=== PATIENT | female | born 1960 | race Caucasian/White ===

== ENCOUNTER 2019-01-11 10:28 | Day surgery (SDC) | payer OTHER ==
[~2019-01-11 10:28] MED LIST: LACTATED RINGERS 1,000 ML IV.SOLN IV ONE; LIDOCAINE HCL 2% PF 100MG/5ML VIAL IJ ONE; PROPOFOL 200 MG/20 ML VIAL IV ONE
--- NOTE | 2019-01-26 13:55 | GI Report ---
PROCEDURE PERFORMED: Colonoscopy with polypectomy. SURGEON: Ashwini Barksdale M.D., [place] INDICATION FOR PROCEDURE: The patient is a 58-year-old woman who had a polyp removed back in 2011. She denies any change in bowel habits or bleeding. PROCEDURE MEDICATION: Propofol, as per Anesthesia. DESCRIPTION OF PROCEDURE: An Olympus video colonoscope was advanced in the rectum. In the descending colon at 60 cm the patient has a 3 mm flat polyp removed with the cold snare at the end of the procedure. The colonoscope was advanced all the way to the cecum. The appendiceal orifice and terminal ileum were normal. On slow withdrawal through the cecum, ascending colon, transverse colon no obvious intraluminal lesions were noted. In the descending colon on withdrawal at 60 cm she had the polyp described above that was removed with a cold snare. The sigmoid colon had no obvious intraluminal lesions noted. Retroflexion in the rectum was normal. The patient tolerated the procedure well. FINDINGS: One small descending colon polyp was removed. RECOMMENDATIONS: 1. High fiber diet. 2. Consider relooking at her colon in 5-10 years pending the pathology of the polyp. If it is hyperplastic it would be 10 years, if it is adenomatous, it would be 5 years. ASHWINI BARKSDALE M.D., [email or web address]. LISA/byron R: 01/25/19 Job#: [id number] Cc: ANU Rucker [address] [id number] Sent via ] POPEYE
== END 2019-01-11 12:33 | disposition home or self-care (01) ==
LOC: OPSURG 10:28
PROVIDERS: ATTEND Internal Medicine Gastroenterology
DX: D12.4 Benign neoplasm of descending colon (principal); Z86.010 Personal history of colon polyps
CPT/HCPCS: 45385; J2001; J2704; J7120; S1016